=== PATIENT | female | born 1960 | race Caucasian/White ===

== ENCOUNTER 2022-03-13 02:06 | Emergency (ER) | payer BC ==
[~2022-03-13] VITALS: Ht 160 cm; Wt 69.9 kg
[2022-03-13 02:54] VITALS: BP_SYST 130
--- NOTE | 2022-03-13 03:00 | NUR ---
Patient presents to ED from home with c/o left shoulder pain and nausea x1day s/p mechanical fall. Patient reports pain 8/10 at this time. Patient states she was getting out of bed approx 0200 as she stepped on rug next to bed she slipped and fell landing on her left shoulder. Patient denies head trauma, no visible trauma noted. Patient A/Ox4, VSS, ambulatory, resp even and unlabored. Nad noted at this time. ER MD Peterson made aware.
--- NOTE | 2022-03-13 03:01 | NUR ---
Patient triaged and placed in ED waiting room awaiting bed availability.
[2022-03-13] MEDS ORDERED: MORPHINE 4 MG INJ. 4 MG/ML VIAL IM ONE (04:30)
[2022-03-13] MEDS ORDERED: PROCHLORPERAZINE EDISYLATE 10 MG/2 ML VIAL IM ONE (04:30)
[2022-03-13] MEDS ORDERED: HYDR-3917 PO (04:44)
[2022-03-13 05:15] VITALS: BP_SYST 130
--- NOTE | 2022-03-13 05:15 | NUR ---
Patient given written and verbal discharge instructions and verbalizes understanding. ER MD discussed with patient the results and treatment provided. Patient in stable condition. ID arm band removed. Rx of Sherman 5-325 given. Patient educated on pain management and to follow up with PMD. Pain Scale 3/10. Opportunity for questions provided and answered. Medication side effect fact sheet provided.
[2022-03-13] MEDS ORDERED: PANT20TA2 PO (11:02)
== END 2022-03-13 05:15 | disposition home or self-care (01) ==
LOC: SED 02:06
DX: S46.002A Unspecified injury of muscle(s) and tendon(s) of the rotator cuff of left shoulder, initial encounter (principal); Z79.899 Other long term (current) drug therapy; X58.XXXA Exposure to other specified factors, initial encounter; Y93.89 Activity, other specified; Y92.89 Other specified places as the place of occurrence of the external cause; Y99.8 Other external cause status
CPT/HCPCS: 99284; 73030; 96372; J0780; J2270

== ENCOUNTER 2022-03-13 07:26 | Emergency (ER) | payer BC ==
[~2022-03-13] VITALS: Ht 160 cm; Wt 69.9 kg
[~2022-03-13 07:26] MED LIST: HYDR-3917 PO
[2022-03-13 07:28] VITALS: BP_SYST 121
--- NOTE | 2022-03-13 07:30 | NUR ---
Patient triaged and placed in waiting room. VSS and patient appears in no acute distress at this time. Accompanied by FAMILY, awaiting available bed, and MD notified of need for MSE.
--- NOTE | 2022-03-13 07:38 | NUR ---
PT STATES SHE WAS HERE EARLIER TODAY FOR FX OF LEFT SHOULDER, GIVEN MORPHINE AND COMPAZINE. PT STATES THAT WHEN SHE LEFT AND GOT HOME, STARTED HAVING UPPER MID ABDOMINAL PAIN RADIATING TO HER BACK. PT DENIES ANY NAUSEA.
--- NOTE | 2022-03-13 07:41 | NUR ---
DR PEREIRA TO TRIAGE ROOM FOR EVALUATION
[2022-03-13] MEDS ORDERED: MAG HYDROX/AL HYDROX/SIMETH 30 ML, DICYCLOMINE HCL 20 MG, LIDOCAINE VISCOUS 2% 15ML (PO... PO ONE ×3 (07:45)
[2022-03-13 08:17] LABS: BASOPHILS % (AUTO) 0.3 % (0.0-2.0); EOSINOPHILS % (AUTO) 0.1 % (0.0-4.0); HEMATOCRIT 39.6 % (36-48); HEMOGLOBIN 13.3 g/dL (12.0-16.0); LYMPHOCYTES # (AUTO) 1.6 K/uL (1.0-5.5); LYMPHOCYTES % (AUTO) 10.4 % (20.5-51.5); MEAN CORPUSCULAR HEMOGLOBIN 32 pg (27-31); MEAN CORPUSCULAR HGB CONC 34 % (32-36); MEAN CORPUSCULAR VOLUME 96 fL (79.0-98.0); MONOCYTES # (AUTO) 0.6 K/uL (0.0-1.0); MONOCYTES % (AUTO) 4.2 % (1.7-9.3); NEUTROPHILS # (AUTO) 13.2 K/uL (1.8-7.7); PLATELET COUNT (AUTO) 300 K/uL (130-430); RED BLOOD CELL COUNT(AUTO) 4.15 MIL/uL (4.2-6.2); RED CELL DISTRIBUTION WIDTH 13.1 % (9.0-15.0); WHITE BLOOD COUNT (AUTO) 15.5 K/uL (4.8-10.8)
--- NOTE | 2022-03-13 08:20 | NUR ---
BROUGHT BACK TO BED #1 AND WILL ASSUME CARE
[2022-03-13 08:34] LABS: ANION GAP 8 (5-15); CALCIUM 8.9 mg/dL (8.4-11.0); CHLORIDE 105 mmol/L (98-107); CREATININE 0.72 mg/dL (0.55-1.30); GLUCOSE 179 mg/dL (70-99); UREA NITROGEN, BLOOD 13 mg/dL (8-21)
[2022-03-13 08:36] LABS: GFR AFRICAN AMERICAN 106 mL/min (>90)
--- NOTE | 2022-03-13 08:42 | NUR ---
PT STATES RELIEF AFTER TAKING GI COCKTAIL.
[2022-03-13 08:45] LABS: ALANINE AMINOTRANSFERASE 75 U/L (12-78); ALBUMIN 4.1 g/dL (3.4-4.8); ASPARTATE AMINOTRANSFERASE 97 U/L (10-37); LIPASE 70 U/L (73-393); TOTAL BILIRUBIN 0.7 mg/dL (0.0-1.0)
--- NOTE | 2022-03-13 08:59 | NUR ---
TAKEN TO RADIOLOGY VIA WHEELCHAIR FOR TESTING
--- NOTE | 2022-03-13 09:15 | NUR ---
RETURNED FROM RADIOLOGY AND PLACED BACK TO BED #1
--- NOTE | 2022-03-13 10:10 | NUR ---
SLEEPING QUIETLY, NO CHANGES.
[2022-03-13] MEDS ORDERED: PANT20TA2 PO (11:02)
--- NOTE | 2022-03-13 11:18 | NUR ---
Patient given written and verbal discharge instructions and verbalizes understanding. ER MD discussed with patient the results and treatment provided. Patient in stable condition. ID arm band removed. Rx of PROTONIX given. Patient educated on pain management and to follow up with PMD. Pain Scale 0/10. Opportunity for questions provided and answered. Medication side effect fact sheet provided.
== END 2022-03-13 11:18 | disposition home or self-care (01) ==
LOC: SED 07:26
DX: K29.70 Gastritis, unspecified, without bleeding (principal); R10.13 Epigastric pain; R11.0 Nausea; Z79.899 Other long term (current) drug therapy
CPT/HCPCS: 99285; 74176; 80053; 83690; 85025; 84484; 36415; 93005; 76376; J2001